=== PATIENT | female | born 1990 | race Caucasian/White ===

== ENCOUNTER 2017-02-24 12:11 | Emergency (ER) | payer OTHER, SELFPAY ==
[~2017-02-24] VITALS: Ht 170.2 cm; Wt 103.6 kg
[2017-02-24 12:11] VITALS: BP 135/81
[~2017-02-24 12:11] MED LIST: ACET50TA PO; IBUP80TA PO; LANOOIN21 EX; PRENTAB9 PO
[2017-02-24] MEDS ORDERED: PENI500T GT (12:59)
== END 2017-02-24 13:33 | disposition home or self-care (01) ==
LOC: M ED 13:26
DX: J02.0 Streptococcal pharyngitis (principal)

== ENCOUNTER 2017-06-09 12:58 | Emergency (ER) | payer MEDICAID, OTHER, SELFPAY ==
[~2017-06-09] VITALS: Ht 170.2 cm; Wt 104.1 kg
[~2017-06-09 12:58] MED LIST changes: +PENI500T GT
[2017-06-09 12:59] VITALS: BP 117/66
[2017-06-09] MEDS ORDERED: BACT800T5 PO (15:41)
[2017-06-09] MEDS ORDERED: BACTRIM 160MG/800MG DS TAB PO ONE (15:45)
== END 2017-06-09 15:47 | disposition home or self-care (01) ==
LOC: M ED 12:58
DX: N30.00 Acute cystitis without hematuria (principal)

== ENCOUNTER 2017-09-23 11:01 | Emergency (ER) | payer OTHER, MEDICAID ==
[2017-09-23 13:15] LABS: BASO # 0.1 10^3/uL (0.0-0.2); BASO % 0.6 % (0.0-1.0); EOS # 0.1 10^3/uL (0.0-0.50); EOS % 0.9 % (0.0-3.0); HEMOGLOBIN 13.7 g/dl (12.0-16.0); IMMATURE GRANULOCYTE # 0.1 10^3/uL (0-0); IMMATURE GRANULOCYTE % 0.5 % (0-0); LYMPH # 1.7 10^3/uL (1.5-6.5); LYMPH % 17.9 % (24.0-44.0); MEAN CORPUSCULAR HEMOGLOBIN 25.4 pg (27.0-33.0); MEAN CORPUSCULAR HGB CONC 32.6 g/dl (32.0-36.5); MEAN CORPUSCULAR VOLUME 77.9 fl (80.0-96.0); MONO # 0.6 10^3/uL (0.0-0.8); MONO % 6.4 % (0.0-5.0); NEUTROPHILS # 7.1 10^3/uL (1.8-7.7); NEUTROPHILS % 73.7 % (36.0-66.0); PLATELET COUNT, AUTOMATED 337 10^3/uL (150-450); RED BLOOD COUNT 5.39 10^6/uL (4.00-5.40); RED CELL DISTRIBUTION WIDTH 14.7 % (11.5-14.5); WHITE BLOOD COUNT 9.7 10^3/uL (4.0-10.0)
[2017-09-23 13:21] LABS: KETONE, URINE AUTO RFX NEGATIVE (NEGATIVE); NITRITE, URINE AUTO RFX NEGATIVE (NEGATIVE); RBC, URINE AUTO RFX 1 /HPF (0-3); SPECIFIC GRAVITY UR AUTO RFX 1.016 (1.002-1.035); SQUAM EPITHELIAL CELL UR AURFX 4 /HPF (0-6); WBC, URINE AUTO RFX 2 /HPF (0-3)
[2017-09-23 13:37] LABS: LEUKOCYTE ESTERASE UR AUTO RFX 3+ (NEGATIVE)
[2017-09-23 13:38] LABS: ANION GAP 7 MEQ/L (8-16); BLOOD UREA NITROGEN 11 MG/DL (7-18); CALCIUM LEVEL 8.9 MG/DL (8.5-10.1); CARBON DIOXIDE LEVEL 28 MEQ/L (21-32); CHLORIDE LEVEL 102 MEQ/L (98-107); CREATININE FOR GFR 0.72 MG/DL (0.55-1.30); GLOMERULAR FILTRATION RATE > 60.0 (>60); GLUCOSE, FASTING 83 MG/DL (70-100); POTASSIUM SERUM 3.9 MEQ/L (3.5-5.1); SODIUM LEVEL 137 MEQ/L (136-145)
[2017-09-23 13:53] LABS: HCG, SERUM QUANTITATIVE 37556 MIU/ML
== END 2017-09-23 14:16 | disposition home or self-care (01) ==
LOC: M ED 11:01
DX: O36.8991 Maternal care for other specified fetal problems, unspecified trimester, fetus 1 (principal); O20.9 Hemorrhage in early pregnancy, unspecified; Z3A.01 Less than 8 weeks gestation of pregnancy
CPT/HCPCS: 76801

== ENCOUNTER 2017-09-30 00:36 | Emergency (ER) | payer OTHER ==
[2017-09-30 02:49] LABS: APPEARANCE, URINE CLOUDY (CLEAR); BACTERIA, URINE AUTO NEGATIVE (NEGATIVE); BILIRUBIN, URINE AUTO NEGATIVE (NEGATIVE); BLOOD, URINE BLOOD NEGATIVE (NEGATIVE); COLOR, URINE YELLOW (YELLOW); GLUCOSE, URINE (UA) AUTO 1+ mg/dL (NEGATIVE); KETONE, URINE AUTO NEGATIVE (NEGATIVE); LEUKOCYTE ESTERASE, URINE AUTO 3+ (NEGATIVE); MUCUS, URINE SMALL (NEGATIVE); NITRITE, URINE AUTO NEGATIVE (NEGATIVE); PROTEIN, URINE AUTO NEGATIVE (NEGATIVE); RBC, URINE AUTO 30 /HPF (0-3); SPECIFIC GRAVITY URINE AUTO 1.019 (1.002-1.035); SQUAMOUS EPITHELIAL CELL UR AU 10 /HPF (0-6); UROBILINOGEN, URINE AUTO 0.2 mg/dL (0.0-2.0); WBC, URINE AUTO 19 /HPF (0-3)
[2017-09-30 03:21] LABS: HCG, SERUM QUANTITATIVE 61298 MIU/ML
[2017-09-30] MEDS: NITROFURANTOIN (MACROBID) 100 MG CAP PO (04:30)
== END 2017-09-30 05:10 | disposition home or self-care (01) ==
LOC: M ED 00:36
DX: O20.8 Other hemorrhage in early pregnancy (principal); O23.40 Unspecified infection of urinary tract in pregnancy, unspecified trimester; Z3A.01 Less than 8 weeks gestation of pregnancy; Z79.899 Other long term (current) drug therapy
CPT/HCPCS: 76801

== ENCOUNTER → 2017-10-16 | Outpatient (CLI) | payer OTHER ==
[2017-10-16 13:40] LABS: BASO % 0.4 % (0.0-1.0); EOS # 0.1 10^3/uL (0.0-0.50); EOS % 1.1 % (0.0-3.0); HEMATOCRIT 38.2 % (36.0-47.0); HEMOGLOBIN 12.7 g/dl (12.0-16.0); IMMATURE GRANULOCYTE % 0.5 % (0-3.0); LYMPH # 1.2 10^3/uL (1.5-6.5); LYMPH % 16.5 % (24.0-44.0); MEAN CORPUSCULAR HEMOGLOBIN 26.7 pg (27.0-33.0); MEAN CORPUSCULAR HGB CONC 33.2 g/dl (32.0-36.5); MEAN CORPUSCULAR VOLUME 80.3 fl (80.0-96.0); MONO # 0.6 10^3/uL (0.0-0.8); MONO % 7.6 % (0.0-5.0); NEUTROPHILS # 5.6 10^3/uL (1.8-7.7); NEUTROPHILS % 73.9 % (36.0-66.0); PLATELET COUNT, AUTOMATED 293 10^3/uL (150-450); RED BLOOD COUNT 4.76 10^6/uL (4.00-5.40); RED CELL DISTRIBUTION WIDTH 15.3 % (11.5-14.5); WHITE BLOOD COUNT 7.5 10^3/uL (4.0-10.0)
[2017-10-16 13:52] LABS: RUBELLA IgG QUALITATIVE IMMUNE (IMMUNE)
[2017-10-16 13:53] LABS: HBsAg Prenatal NEGATIVE (NEGATIVE)
[2017-10-16 14:21] LABS: HEPATITIS C VIRUS ABY INDEX 0.1 INDEX (<0.8)
[2017-10-16 14:22] LABS: HIV 1&2 SCREEN CENTAUR NEGATIVE (NEGATIVE)
[2017-10-16 15:04] LABS: CHLAMYDIA DNA AMPLIFICATION POSITIVE (NEGATIVE); GC DNA AMPLIFICATION NEGATIVE (NEGATIVE)
== END ==
LOC: M SMT 08:32
DX: Z34.81 Encounter for supervision of other normal pregnancy, first trimester (principal); Z3A.09 9 weeks gestation of pregnancy
CPT/HCPCS: 86762

== ENCOUNTER 2017-10-27 09:47 | Emergency (ER) | payer OTHER ==
[2017-10-27 10:32] LABS: HEMATOCRIT 37.3 % (36.0-47.0); HEMOGLOBIN 12.7 g/dl (12.0-16.0); MEAN CORPUSCULAR VOLUME 79.2 fl (80.0-96.0); PLATELET COUNT, AUTOMATED 279 10^3/uL (150-450); RED BLOOD COUNT 4.71 10^6/uL (4.00-5.40); RED CELL DISTRIBUTION WIDTH 15.1 % (11.5-14.5); WHITE BLOOD COUNT 10.1 10^3/uL (4.0-10.0)
[2017-10-27 11:09] LABS: HCG, SERUM QUANTITATIVE 65673 MIU/ML
[2017-10-27 11:25] LABS: KETONE, URINE AUTO RFX NEGATIVE (NEGATIVE); MUCUS, URINE RFX SMALL (NEGATIVE); NITRITE, URINE AUTO RFX NEGATIVE (NEGATIVE); RBC, URINE AUTO RFX 6 /HPF (0-3); SPECIFIC GRAVITY UR AUTO RFX 1.027 (1.002-1.035); SQUAM EPITHELIAL CELL UR AURFX 16 /HPF (0-6); WBC, URINE AUTO RFX 7 /HPF (0-3)
[2017-10-27 11:26] LABS: LEUKOCYTE ESTERASE UR AUTO RFX 3+ (NEGATIVE)
[2017-10-27 13:57] LABS: CHLAMYDIA DNA AMPLIFICATION NEGATIVE (NEGATIVE); GC DNA AMPLIFICATION NEGATIVE (NEGATIVE)
== END 2017-10-27 12:04 | disposition home or self-care (01) ==
LOC: M ED 09:47
DX: O26.852 Spotting complicating pregnancy, second trimester (principal); O23.42 Unspecified infection of urinary tract in pregnancy, second trimester; Z3A.09 9 weeks gestation of pregnancy; Z79.899 Other long term (current) drug therapy
CPT/HCPCS: 76801

== ENCOUNTER 2017-11-06 08:45 | Emergency (ER) | payer OTHER ==
[2017-11-06] MEDS: NS 1,000 ML IV (09:26)
[2017-11-06] MEDS: ONDANSETRON 4MG/2ML VIAL (J2405) IV (09:26)
[2017-11-06] MEDS: ACETAMINOPHEN 325 MG TAB PO (09:27)
== END 2017-11-06 11:25 | disposition home or self-care (01) ==
LOC: M ED 08:45
DX: O26.892 Other specified pregnancy related conditions, second trimester (principal); R11.2 Nausea with vomiting, unspecified; R10.2 Pelvic and perineal pain; Z3A.14 14 weeks gestation of pregnancy
CPT/HCPCS: J2405

== ENCOUNTER → 2017-11-15 | Outpatient (REF) | payer OTHER ==
[2017-11-15 14:29] LABS: CHLAMYDIA DNA AMPLIFICATION NEGATIVE (NEGATIVE); GC DNA AMPLIFICATION NEGATIVE (NEGATIVE)
== END ==
LOC: M LAB REF 12:48
DX: O98.311 Other infections with a predominantly sexual mode of transmission complicating pregnancy, first trimester (principal)

== ENCOUNTER 2017-11-23 21:31 | Emergency (ER) | payer OTHER | END 2017-11-24 00:31 | disposition home or self-care (01) | LOC: M ED 21:31 | DX: O9A.212 Injury, poisoning and certain other consequences of external causes complicating pregnancy, second trimester (principal); S30.92XA Unspecified superficial injury of abdominal wall, initial encounter; W22.8XXA Striking against or struck by other objects, initial encounter; Y92.59 Other trade areas as the place of occurrence of the external cause; Y99.0 Civilian activity done for income or pay; Z3A.15 15 weeks gestation of pregnancy | CPT/HCPCS: 76811 ==

== ENCOUNTER → 2017-12-16 | Outpatient (REF) | payer OTHER ==
[2017-12-16 16:52] LABS: APPEARANCE, URINE HAZY (CLEAR); BACTERIA, URINE AUTO NEGATIVE (NEGATIVE); BILIRUBIN, URINE AUTO NEGATIVE (NEGATIVE); BLOOD, URINE BLOOD NEGATIVE (NEGATIVE); COLOR, URINE YELLOW (YELLOW); GLUCOSE, URINE (UA) AUTO NEGATIVE (NEGATIVE); KETONE, URINE AUTO TRACE mg/dL (NEGATIVE); LEUKOCYTE ESTERASE, URINE AUTO 3+ (NEGATIVE); MUCUS, URINE SMALL (NEGATIVE); NITRITE, URINE AUTO NEGATIVE (NEGATIVE); PROTEIN, URINE AUTO NEGATIVE (NEGATIVE); RBC, URINE AUTO 2 /HPF (0-3); SPECIFIC GRAVITY URINE AUTO 1.025 (1.002-1.035); SQUAMOUS EPITHELIAL CELL UR AU 8 /HPF (0-6); UROBILINOGEN, URINE AUTO 0.2 mg/dL (0.0-2.0); WBC, URINE AUTO 4 /HPF (0-3)
== END ==
LOC: M LAB REF 16:25
DX: N39.0 Urinary tract infection, site not specified (principal)

== ENCOUNTER → 2017-12-19 | Outpatient (CLI) | payer OTHER | LOC: M RAD 14:27 | DX: Z34.82 Encounter for supervision of other normal pregnancy, second trimester (principal) | CPT/HCPCS: 76816 ==

== ENCOUNTER → 2018-01-06 | Outpatient (REF) | payer OTHER ==
[2018-01-06 13:03] LABS: APPEARANCE, URINE CLOUDY (CLEAR); BACTERIA, URINE AUTO NEGATIVE (NEGATIVE); BILIRUBIN, URINE AUTO NEGATIVE (NEGATIVE); BLOOD, URINE BLOOD 1+ (NEGATIVE); CALCIUM OXALATE CRYSTALS SMALL; COLOR, URINE AMBER (YELLOW); GLUCOSE, URINE (UA) AUTO NEGATIVE (NEGATIVE); KETONE, URINE AUTO NEGATIVE (NEGATIVE); LEUKOCYTE ESTERASE, URINE AUTO 3+ (NEGATIVE); MUCUS, URINE SMALL (NEGATIVE); NITRITE, URINE AUTO NEGATIVE (NEGATIVE); PROTEIN, URINE AUTO NEGATIVE (NEGATIVE); RBC, URINE AUTO 2 /HPF (0-3); SPECIFIC GRAVITY URINE AUTO 1.028 (1.002-1.035); SQUAMOUS EPITHELIAL CELL UR AU 15 /HPF (0-6); UROBILINOGEN, URINE AUTO 0.2 mg/dL (0.0-2.0); WBC, URINE AUTO 6 /HPF (0-3)
== END ==
LOC: M LAB REF 12:14
DX: N39.0 Urinary tract infection, site not specified (principal)

== ENCOUNTER → 2018-01-14 | Outpatient (CLI) | payer OTHER | LOC: M RAD 15:51 | DX: Z34.82 Encounter for supervision of other normal pregnancy, second trimester (principal); Z3A.22 22 weeks gestation of pregnancy | CPT/HCPCS: 76816 ==

== ENCOUNTER 2018-02-17 20:11 | Outpatient (CLI) | payer OTHER | END 2018-02-17 21:30 | disposition home or self-care (01) | LOC: M LDO 20:11 | DX: O36.8120 Decreased fetal movements, second trimester, not applicable or unspecified (principal); Z3A.27 27 weeks gestation of pregnancy; O26.852 Spotting complicating pregnancy, second trimester | CPT/HCPCS: 59025 ==

== ENCOUNTER → 2018-02-19 | Outpatient (CLI) | payer OTHER ==
[2018-02-19 13:42] LABS: HEMATOCRIT 36.2 % (36.0-47.0); HEMOGLOBIN 11.5 g/dl (12.0-15.5); MEAN CORPUSCULAR HGB CONC 31.8 g/dl (32.0-36.5); MEAN CORPUSCULAR VOLUME 81.7 fl (80.0-96.0); PLATELET COUNT, AUTOMATED 276 10^3/uL (150-450); RED BLOOD COUNT 4.43 10^6/uL (4.00-5.40); RED CELL DISTRIBUTION WIDTH 14.1 % (11.5-14.5); WHITE BLOOD COUNT 9.8 10^3/uL (4.0-10.0)
[2018-02-19 13:56] LABS: GLUCOSE CHALLENGE TEST 1 HOUR 137 MG/DL (LESS THAN 140)
== END ==
LOC: M SMT 08:33
DX: Z34.82 Encounter for supervision of other normal pregnancy, second trimester (principal)
CPT/HCPCS: 82950

== ENCOUNTER → 2018-02-25 | Outpatient (CLI) | payer OTHER ==
[2018-02-25 08:30] LABS: GLUCOSE, FASTING 85 MG/DL (LESS THAN 95)
[2018-02-25 09:27] LABS: 1 HR GLUCOSE 147 MG/DL (LESS THAN 180)
[2018-02-25 11:03] LABS: 2 HR GLUCOSE 123 MG/DL (LESS THAN 155)
[2018-02-25 11:28] LABS: 3 HR GLUCOSE 61 MG/DL (LESS THAN 140)
== END ==
LOC: M LAB 07:23
DX: Z34.82 Encounter for supervision of other normal pregnancy, second trimester (principal); Z3A.00 Weeks of gestation of pregnancy not specified
CPT/HCPCS: 82951

== ENCOUNTER 2018-03-19 08:19 | Outpatient (CLI) | payer OTHER ==
[2018-03-19 15:25] LABS: CHLAMYDIA DNA AMPLIFICATION NEGATIVE (NEGATIVE); GC DNA AMPLIFICATION NEGATIVE (NEGATIVE)
== END 2018-03-19 11:03 | disposition home or self-care (01) ==
LOC: M LDO 08:19
DX: O26.893 Other specified pregnancy related conditions, third trimester (principal); Z3A.31 31 weeks gestation of pregnancy; O23.593 Infection of other part of genital tract in pregnancy, third trimester
CPT/HCPCS: 59025

== ENCOUNTER 2018-05-14 12:21 | Inpatient (IN) | payer OTHER ==
[2018-05-14] MEDS: LACTATED RINGER'S 1000 ML IV (13:04)
[2018-05-14] MEDS: LR 1,000 ML IV ×3 (13:18→17:50)
[2018-05-14] MEDS: OXYTOCIN DRIP 30 UNITS in APPROPRIATE DILUENT 1 EA IV (13:18)
[2018-05-14 13:24] LABS: HEMATOCRIT 36.3 % (36.0-47.0); HEMOGLOBIN 11.9 g/dl (12.0-15.5); MEAN CORPUSCULAR HGB CONC 32.8 g/dl (32.0-36.5); MEAN CORPUSCULAR VOLUME 79.3 fl (80.0-96.0); PLATELET COUNT, AUTOMATED 216 10^3/uL (150-450); RED BLOOD COUNT 4.58 10^6/uL (4.00-5.40); RED CELL DISTRIBUTION WIDTH 17.3 % (11.5-14.5); WHITE BLOOD COUNT 8.1 10^3/uL (4.0-10.0)
[2018-05-14 13:54] LABS: AMPHETAMINES URINE REFLEX NEGATIVE (NEGATIVE); BARBITURATES URINE REFLEX NEGATIVE (NEGATIVE); BENZODIAZEPINES URINE REFLEX NEGATIVE (NEGATIVE); CANNABINOIDS URINE REFLEX NEGATIVE (NEGATIVE); COCAINE METABOLITE URINE REFLE NEGATIVE (NEGATIVE); METHADONE URINE REFLEX NEGATIVE (NEGATIVE); OPIATES URINE REFLEX NEGATIVE (NEGATIVE); PHENCYCLIDINE URINE REFLEX NEGATIVE (NEGATIVE)
[2018-05-14 15:08] LABS: ALT/SGPT 20 U/L (12-78); AST/SGOT 20 U/L (7-37); BILIRUBIN,TOTAL 0.2 MG/DL (0.2-1.0); CREATININE FOR GFR 0.68 MG/DL (0.55-1.30); GLOMERULAR FILTRATION RATE > 60.0 (>60); LDH LACTATE DEHYDROGENASE 182 U/L (84-246); URIC ACID 5.7 MG/DL (2.6-6.0)
[2018-05-14 15:20] LABS: TOTAL PROTEIN,RANDOM URINE 66.6 MG/DL (0.0-12.0)
[2018-05-14 16:43] LABS: CHLAMYDIA DNA AMPLIFICATION NEGATIVE (NEGATIVE); GC DNA AMPLIFICATION NEGATIVE (NEGATIVE)
[2018-05-14] MEDS ORDERED: FENTANYL 2MCG/ML ROPIVACAINE 0.2% IN 0.9% NACL 200ML IVBAG As Ordered (17:25)
[2018-05-14] MEDS ORDERED: ePHEDrine SULFATE 25 MG/5 ML(5MG/ML) SYRINGE IV (18:00)
[2018-05-14] MEDS ORDERED: ONDANSETRON 4MG/2ML VIAL (J2405) IV (18:00)
[2018-05-14] MEDS ORDERED: EPIDURAL/PCA KEYS XX (18:00)
[2018-05-14] MEDS ORDERED: diphenhydrAMINE INJ 50MG/ML VIAL (J1200) IV (18:00)
[2018-05-14] MEDS ORDERED: EPIDURAL COMMENT XX (18:00)
[2018-05-14] MEDS ORDERED: FENTANYL/ROPIVACAINE/NACL BAG 200 ML EPIDURAL (18:00)
[2018-05-14] MEDS ORDERED: REFRIGERATOR IV KEYS XX (18:00)
[2018-05-14] MEDS ORDERED: LACTATED RINGER'S 1000 ML IV (18:00)
[2018-05-14] MEDS ORDERED: NALOXONE INJ 0.4 MG/1 ML VIAL (J2310) IV (18:00)
[2018-05-14] MEDS ORDERED: DOCUSATE SODIUM 100 MG CAP PO (23:15)
[2018-05-14] MEDS ORDERED: MEASLES,MUMPS,RUBELLA VACCINE INJ (MMR-II) (90707) SC (23:15)
[2018-05-14] MEDS ORDERED: ANUSOL HC CREAM 30GM TOP (23:15)
[2018-05-14] MEDS ORDERED: DIBUCAINE 1% OINTMENT 30GM TOP (23:15)
[2018-05-14] MEDS ORDERED: RHOGAM 300 MCG (1500 IU) INJ (J2790) IM (23:15)
[2018-05-15] MEDS: OXYTOCIN DRIP 30 UNITS in APPROPRIATE DILUENT 1 EA IV ×5 (00:38→22:59)
[2018-05-15] MEDS: ACETAMINOPHEN 500 MG TAB PO (00:38)
[2018-05-15] MEDS: OXYTOCIN INJ 10 UNITS/ML VIAL (J2590) IM (01:20)
[2018-05-15] MEDS: PRENATAL VITAMINS CHEWABLE TABLET PO (08:19)
[2018-05-15] MEDS: IBUPROFEN 800 MG TAB PO ×2 (08:24→19:57)
[2018-05-16] MEDS: OXYTOCIN DRIP 30 UNITS in APPROPRIATE DILUENT 1 EA IV ×3 (02:16→11:16)
[2018-05-16] MEDS: PRENATAL VITAMINS CHEWABLE TABLET PO (08:19)
[2018-05-16] MEDS: INFLUENZA QUADRIVALENT PF VACCINE 0.5ML SYRINGE (90686) IM (08:20)
== END 2018-05-16 12:15 | disposition home or self-care (01) | DRG 560 ==
LOC: M LDI 12:21 → M OBS 05-15 00:59
PROVIDERS: Advanced Practice Midwife
PROC: 10E0XZZ Delivery of Products of Conception, External Approach (ICD-10-PCS; principal; 2018-05-14)
PROC: 3E033VJ Introduction of Other Hormone into Peripheral Vein, Percutaneous Approach (ICD-10-PCS; 2018-05-14)
DX: O46.93 Antepartum hemorrhage, unspecified, third trimester (principal); O66.0 Obstructed labor due to shoulder dystocia; Z37.0 Single live birth; Z3A.39 39 weeks gestation of pregnancy

== ENCOUNTER 2018-07-02 08:34 | Day surgery (SDC) | payer OTHER ==
[2018-07-02] MEDS: LR 1,000 ML IV (09:00)
[2018-07-02 09:34] LABS: CONTROL LINE UCG INT CTR LINE PRESENT; URINE PREG TEST NEGATIVE (NEGATIVE)
[2018-07-02] MEDS ORDERED: fentaNYL 100 MCG/2 ML INJECTION (J3010) As Ordered ×2 (10:05→10:10)
[2018-07-02] MEDS ORDERED: ONDANSETRON 4MG/2ML VIAL (J2405) As Ordered (10:05)
[2018-07-02] MEDS ORDERED: PROPOFOL 200 MG/20 ML VIAL As Ordered (10:05)
[2018-07-02] MEDS ORDERED: MIDAZOLAM INJ 2 MG/2 ML VIAL (J2250) As Ordered (10:05)
[2018-07-02] MEDS ORDERED: ROCURONIUM BROMIDE 50 MG/5 ML VIAL As Ordered ×2 (10:05→10:23)
[2018-07-02] MEDS ORDERED: dexameTHASONE 4 MG/ML 1ML VIAL (J1100) As Ordered (10:05)
[2018-07-02] MEDS ORDERED: LIDOCAINE 2% INJ 100 MG/5 ML SDV (FOR ANES.) As Ordered (10:05)
[2018-07-02] MEDS ORDERED: SUGAMMADEX SODIUM 500 MG/5 ML VIAL (BRIDION) As Ordered (10:16)
[2018-07-02] MEDS ORDERED: KETOROLAC 60 MG/2 ML VIAL (J1885) As Ordered (10:17)
[2018-07-02] MEDS: BUPIVACAINE HCL 0.25% 30 ML VIAL As Ordered (10:35)
[2018-07-02] MEDS ORDERED: GLYCOPYRROLATE INJ 0.2 MG/ML 2 ML VIAL As Ordered (11:05)
[2018-07-02] MEDS ORDERED: LR 1,000 ML IV ×2 (11:15→11:30)
[2018-07-02] MEDS ORDERED: PERCOCET 5MG/325MG TAB PO ×2 (11:30)
[2018-07-02] MEDS ORDERED: fentaNYL 100 MCG/2 ML INJECTION (J3010) IV (11:30)
[2018-07-02] MEDS ORDERED: ONDANSETRON 4MG/2ML VIAL (J2405) IV (11:30)
== END 2018-07-02 12:55 | disposition home or self-care (01) ==
LOC: M SDC 08:34
DX: Z30.2 Encounter for sterilization (principal); D64.9 Anemia, unspecified; F32.9 Major depressive disorder, single episode, unspecified; Z79.899 Other long term (current) drug therapy; E66.01 Morbid (severe) obesity due to excess calories
CPT/HCPCS: 58671

== ENCOUNTER 2020-06-12 09:04 | Emergency (ER) | payer OTHER ==
[~2020-06-12] VITALS: Ht 170.2 cm; Wt 110.2 kg
[~2020-06-12 09:04] MED LIST changes: -ACET50TA PO; +BACT800T5 PO; +KEFL250C11 PO; +MACR100C43 PO; +MAPA500T17 PO; +OXYC1TAB23 PO; +PRENTAB7 PO; +prenatal PO
--- NOTE | 2020-06-12 10:14 | REPVR ---
PROCEDURE INFORMATION: Exam: CT Head Without Contrast Exam date and time: 06/12/2020 10:00 AM Age: 29 years old Clinical indication: Numbness / parasthesia; Bilateral; Additional info: Bilat arm numbness TECHNIQUE: Imaging protocol: Computed tomography of the head without contrast. Radiation optimization: All CT scans at this facility use at least one of these dose optimization techniques: automated exposure control; mA and/or kV adjustment per patient size (includes targeted exams where dose is matched to clinical indication); or iterative reconstruction. COMPARISON: No relevant prior studies available. FINDINGS: Brain: Examination of the brain demonstrates normal structure and attenuation.The cortical newman / white matter interfaces are preserved throughout the brain.No acute infarction, masses or hemorrhage is seen. Cerebral ventricles: The ventricular system is not dilated and is appropriate for the patient's age. Bones/joints: Unremarkable. No acute fracture. Paranasal sinuses: Visualized sinuses are unremarkable. No fluid levels. Mastoid air cells: Visualized mastoid air cells are well aerated. Soft tissues: Unremarkable. IMPRESSION: No acute infarction, masses or hemorrhage is seen. No acute intracranial abnormality is identified. Electronically signed by: Virgilio Miller On 06/12/2020 10:13:46 AM
--- NOTE | 2020-06-12 10:18 | REPVR ---
PROCEDURE INFORMATION: Exam: CT Cervical Spine Without Contrast Exam date and time: 06/12/2020 10:00 AM Age: 29 years old Clinical indication: Weakness; Additional info: Bilat arm numbness, cervical tenderness TECHNIQUE: Imaging protocol: Computed tomography images of the cervical spine without contrast. Radiation optimization: All CT scans at this facility use at least one of these dose optimization techniques: automated exposure control; mA and/or kV adjustment per patient size (includes targeted exams where dose is matched to clinical indication); or iterative reconstruction. COMPARISON: No relevant prior studies available. FINDINGS: Vertebrae: The cervical vertebral bodies are normal height and alignment.No acute fracture or dislocation is seen. Discs/Spinal canal/Neural foramina: The atlantoaxial articulation is normal. There is no significant degenerative disc herniation . There is no evidence of spinal canal narrowing.There is no evidence of foraminal stenosis. Epidural space: There is no evidence of epidural masses or hemorrhage. Prevertebral Space: The prevertebral soft tissues appear normal. Soft tissues: There is straightening of the cervical spine which could be secondary to positioning or muscle spasm. There are no soft tissue masses or fluid collections. Lungs: Lung apices are normal. IMPRESSION: No acute fracture or dislocation is seen. Electronically signed by: Virgilio Miller On 06/12/2020 10:18:27 AM
[2020-06-12 10:34] VITALS: BP 133/78
== END 2020-06-12 10:36 | disposition home or self-care (01) ==
LOC: M ED 09:04
DX: R20.2 Paresthesia of skin (principal); Z91.040 Latex allergy status

== ENCOUNTER 2021-06-30 23:32 | Emergency (ER) | payer OTHER ==
[~2021-06-30] VITALS: Ht 170.2 cm; Wt 95.0 kg
--- OUTSIDE RECORDS SUMMARY | 2021-06-30 23:39 | CCD ---
Author Author [facility] Organization [facility] Address Unknown Phone Unavailable Care Team Providers Care Dobby Looms Pegger Name Role Phone Maring, Jr PA Unavailable Unavailable Maring, Jr PA Unavailable Unavailable Maring, Jr PA Unavailable Unavailable Maring, Jr PA Unavailable Unavailable Maring, Jr PA Unavailable Unavailable Maring, Jr PA Unavailable Unavailable Maring, Jr PA Unavailable Unavailable Maring, Jr PA Unavailable Unavailable Maring, Jr PA Unavailable Unavailable Maring, Jr PA Unavailable Unavailable Maring, Jr PA Unavailable Unavailable Maring, Jr PA Unavailable Unavailable Maring, Jr PA Unavailable Unavailable Maring, Jr PA Unavailable Unavailable Maring, Jr PA Unavailable Unavailable Maring, Jr PA Unavailable Unavailable GALLO, G EDWARD RPA Unavailable Unavailable GALLO, G EDWARD RPA Unavailable Unavailable GALLO, G EDWARD RPA Unavailable Unavailable GALLO, G EDWARD RPA Unavailable Unavailable GALLO, G EDWARD RPA Unavailable Unavailable GALLO, G EDWARD RPA Unavailable Unavailable GALLO, G EDWARD RPA Unavailable Unavailable GALLO, G EDWARD RPA Unavailable Unavailable GALLO, G EDWARD RPA Unavailable Unavailable GALLO, G EDWARD RPA Unavailable Unavailable GALLO, G EDWARD RPA Unavailable Unavailable GALLO, G EDWARD RPA Unavailable Unavailable GALLO, G EDWARD RPA Unavailable Unavailable GALLO, G EDWARD RPA Unavailable Unavailable GALLO, G EDWARD RPA Unavailable Unavailable GALLO, G EDWARD RPA Unavailable Unavailable GALLO, G EDWARD RPA Unavailable Unavailable GALLO, G EDWARD RPA Unavailable Unavailable GALLO, G EDWARD RPA Unavailable Unavailable GALLO, G EDWARD RPA Unavailable Unavailable GALLO, G EDWARD RPA Unavailable Unavailable GALLO, G EDWARD RPA Unavailable Unavailable GALLO, G EDWARD RPA Unavailable Unavailable GALLO, G EDWARD RPA Unavailable Unavailable GALLO, G EDWARD RPA Unavailable Unavailable GALLO, G EDWARD RPA Unavailable Unavailable GALLO, G EDWARD RPA Unavailable Unavailable GALLO, G EDWARD RPA Unavailable Unavailable GALLO, G EDWARD RPA Unavailable Unavailable GALLO, G EDWARD RPA Unavailable Unavailable GALLO, G EDWARD RPA Unavailable Unavailable GALLO, G EDWARD RPA Unavailable Unavailable GALLO, G EDWARD RPA Unavailable Unavailable GALLO, G EDWARD RPA Unavailable Unavailable GALLO, G EDWARD RPA Unavailable Unavailable GALLO, G EDWARD RPA Unavailable Unavailable GALLO, G EDWARD RPA Unavailable Unavailable Re-disclosure Warning The records that you are about to access may contain information from federally-assisted alcohol or drug abuse programs. If such information is present, then the following federally mandated warning applies: This information has been disclosed to you from records protected by federal confidentiality rules (42 CFR part 2). The federal rules prohibit you from making any further disclosure of this information unless further disclosure is expressly permitted by the written consent of the person to whom it pertains or as otherwise permitted by 42 CFR part 2. A general authorization for the release of medical or other information is NOT sufficient for this purpose. The Federal rules restrict any use of the information to criminally investigate or prosecute any alcohol or drug abuse patient.The records that you are about to access may contain highly sensitive health information, the redisclosure of which is protected by Article 27-F of the [facility] Public Health law. If you continue you may have access to information: Regarding HIV / AIDS; Provided by facilities licensed or operated by the [facility] Office of Mental Health; or Provided by the [facility] Office for People With Developmental Disabilities. If such information is present, then the following [facility] mandated warning applies: This information has been disclosed to you from confidential records which are protected by state law. State law prohibits you from making any further disclosure of this information without the specific written consent of the person to whom it pertains, or as otherwise permitted by law. Any unauthorized further disclosure in violation of state law may result in a fine or group home sentence or both. A general authorization for the release of medical or other information is NOT sufficient authorization for further disc losure. Family History Family Member Name Family Member Gender Family Member Status Date o f Status Description Data Source(s) Unknown Unknown Problem [facility] ([facility]) Encounters Encounter Providers Location Date Indications Data Source(s ) Outpatient Attender: CHRISTINE GALLO RPA 04/30 11:57:15 AM EDT - 04/30/2021 01:10:27 PM EDT [facility] ([facility] ) Outpatient 04/30/2021 11:50:59 AM EDT [facility] ([facility]) Outpatient Attender: Jr ALVARADO 04/25/20 07:39:12 AM EDT - 04/25/2021 08:12:05 AM EDT [facility] ([facility] ) Outpatient Attender: CHRISTINE GALLO RPA 12/29 12:45:08 PM EDT - 12/29/2020 02:49:13 PM EDT [facility] ([facility] ) Immunizations Vaccine Date Status Description Data Source(s) COVID-19 VACCINE Moderna 01/01/2021 12:00:00 AM EDT completed [facility] Vaccine Series Complete: YESThis Data wa s Submitted to [facility] Via [facility]. COVID-19 VACC,MRNA(MODERNA)/PF 12/01/2020 12:00:00 AM EDT completed [facility] COVID-19 VACCINE Moderna 12/01/2020 12:00:00 AM EDT completed [facility] Vaccine Series Complete: NOThis Data was Submitted to [facility] [employer]. INFLUENZA VIRUS VACCINE QUADRIVAL [id number](6 MOS AND UP)/PF 05/07/2020 12:00:00 AM EDT completed [facility] Medications Medication Brand Name Start Date Product Form Dose Route Admi nistrative Instructions Pharmacy Instructions Status Indications Reaction Description Data Source(s) 500 mg 04/30/2021 12:00:00 AM EDT tablet 3 TAKE ONE TABLET BY MOUTH ONCE DAILY FOR 3 DAYS TAKE ONE TABLET BY MOUTH ONCE DAILY FOR 3 DAYS SOLD: 0 04/30/2021 [facility] 20 mg 04/30/2021 12:00:00 AM EDT tablet 15 TAKE 3 TABLETS BY MOUTH DAILY FOR 3 DAYS THEN 2 TABLETS BY MOUTH DAILY FOR 2 DAYS THEN 1 TABLET BY MOUTH DAILY FOR 2 DAYS TAKE 3 TABLETS BY MOUTH DAILY FOR 3 DAYS THEN 2 TABLETS BY MOUTH DAILY FOR 2 DAYS THEN 1 TABLET BY MOUTH DAILY FOR 2 DAYS SOLD: 04/30/2021 [facility] Hydrocortisone 10 MG/ML / Neomycin 3.5 M G/ML / Polymyxin B 80944 UNT/ML Otic Solution 3.5-10,000-1 mg/mL-unit/mL-% NEOMYCIN/POLYMYXIN B/HYDROCORT 04/25/2021 12:00:00 AM EDT solution 10 INSTILL FOUR EZRA PS OTIC (EAR) FOUR TIMES A DAY IN LEFT EAR INSTILL FOUR DROPS OTIC (EAR) FOUR TIMES A DAY IN LEFT EAR SOLD: 04/25/2021 [facility] . UNIT 05/24/2020 12:00:00 AM EDT Injectable 1 DIRECTED DIRECTED SOLD: 05/25/2020 [facility] Insurance Providers Payer name Policy type / Coverage type Policy ID Covered green party ID Covered green party's relationship to salcedo Policy Salcedo Plan Information [facility] Maintenance [facility] ([facility]) [id number] Self [id number] [facility] ([facility]) [id number] Self [id number] [facility] [id number] SP [id number] [facility] [id number] SP [id number] Workers Comp I- FA WorkComp Health Claim [id number] Employee [id number] Workers Comp Carrier I WorkComp Health Claim [id number] Emp [place] [id number] Workers Comp I- FA WorkComp Health Claim [id number] Employee [id number] Workers Comp Carrier I WorkComp Health Claim [id number] Emp l[place]ee [id number] [employer] [id number] Self [id number] [employer]. 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 PLAN [id number] SP [id number] SELF PAY UNAVAILABLE SP UNAVAILA BLE [facility] SA[facility] [id number] FA2 [id number] NINA [id number] SP [id number] 100 [id number] [place] O [id number] S [id number] [facility] O [id number] S [id number] UNHC COMMUNITY PLAN MCDHMO [id number] SP [id number] UNHC COMMUNITY PLAN XIX [id number] 18 [id number] MEDICAID [id number] SP [id number] SELF PAY ONLY [id number] SP [id number] SELF PAY ONLY [id number] SP [id number] [facility] Maintenance Organization (HMO) [id number] Self [employer] S [id number] S [id number] Problems, Conditions, and Diagnoses No Information Surgeries/Procedures No Information Results ID Date Data Source [id number] 08/31/2020 02:21:00 PM EST [facility] Name Value Range Interpretation Code Description Data Yaa rce(s) Supporting Document(s) SARS-CoV-2 by JOSE Not Detected [facility] This lab was ordered by [facility] and reported by [employer]. ID Date Data Source [id number] 09/03/2020 07:08:35 PM EST [facility] Name Value Range Interpretation Code Description Data Yaa rce(s) Supporting Document(s) SARS COV2 SOURCE [facility] SARS COV 2 BY PCR [facility] Not Detected INTERPRETIVE INFORMATION: S ARS-CoV-2 (COVID-19) by JOSE This test should be ordered for the detection of the 2019 novel coronavirus SARS-CoV-2 in individuals who meet SARS-CoV-2 clinical and/or epidemiological criteria. The Coronavirus SARS-CoV-2 (COVID-19) by nucleic acid amplification test is for in vitro diagnostic use under the FDA Emergency Use Authorization (EUA) for US laboratories certified under CLIA to perform high complexity tests. This test has not been FDA cleared or approved. In compliance with this authorization, please visit [email or web address] for more information and to access the applicable information sheets. Not Detected results do not rule out the presence of PCR inhibitors in the patient specimen or assay specific nucleic acid in concentrations below the level of detection by the assay. Detected results are indicative of the presence of SARS-CoV-2 RNA. Due to the complexity of nucleic acid amplification methodologies, there may be a risk of false positive results. Clinical correlation with patient history and other diagnostic information is necessary to determine patient infection status. Reliable results are dependent on adequate specimen collection, transport, storage, and handling. Performed by [employer], [address] [place] [id number] [email or web address], Marcia Langley MD, Lab. Director ID Date Data Source [id number] 08/20/2020 12:00:00 AM EST [facility] Name Value Range Interpretation Code Description Data Yaa rce(s) Supporting Document(s) SARS coronavirus 2 RNA [facility] This lab was ordered by [facility] and rep orted by [facility]. Procedure Social History No Information
[2021-07-01 03:42] VITALS: BP 124/84
--- OUTSIDE RECORDS SUMMARY | 2021-07-01 05:20 | CCD ---
Author Author [facility] Organization [facility] Address Unknown Phone Unavailable Care Team Providers Care Home Child Care Provider Name Role Phone Maring, Jr PA Unavailable [...] is protected by Article 27-F of the [facility] Public Health law. If you continue you may have access to information: Regarding HIV / AIDS; Provided by facilities licensed or operated by the [facility] Office of Mental Health; or Provided by the [facility] Office for People With Developmental Disabilities. If such information is present, then the following [facility] mandated warning applies: This information has been [...] law may result in a fine or alf sentence or both. A general authorization for [...] EDT - 04/30/2021 01:10:27 PM EDT [facility] ([facility] ) Outpatient 04/30/2021 11:50:59 AM EDT [facility] ([facility]) Outpatient Attender: Jr ALVARADO 04/25/20 07:39:12 AM EDT - 04/25/2021 08:12:05 AM EDT [facility] ([facility] ) Outpatient Attender: CHRISTINE GALLO RPA 12/29 12:45:08 PM EDT - 12/29/2020 02:49:13 PM EDT [facility] ([facility] ) Immunizations Vaccine Date Status Description Data Source(s) COVID-19 VACCINE Moderna 01/01/2021 12:00:00 AM EDT completed [facility] Vaccine Series Complete: YESThis Data wa s Submitted to [facility] Via [email or web address]. COVID-19 VACC,MRNA(MODERNA)/PF 12/01/2020 12:00:00 AM EDT completed [facility] COVID-19 VACCINE Moderna 12/01/2020 12:00:00 AM EDT completed [facility] Vaccine Series Complete: NOThis Data was Submitted to [facility] Via [email or web address]. INFLUENZA VIRUS VACCINE QUADRIVAL [id number](6 MOS AND UP)/PF 05/07/2020 12:00:00 AM EDT completed [employer] Medications Medication Brand Name Start Date Product [...] Neomycin 3.5 M G/ML / Polymyxin B 60647 UNT/ML Otic Solution 3.5-10,000-1 mg/mL-unit/mL-% NEOMYCIN/POLYMYXIN B/HYDROCORT [...] type / Coverage type Policy ID Covered republican ID Covered republican's relationship to salcedo Policy Salcedo Plan Information [facility] Maintenance [facility] ([facility]) [id number] Self [id number] [facility] ([facility]) [id number] Self [id number] [facility] [id number] SP [id number] [facility] [id number] SP [id number] Workers Comp I- FA WorkComp Health Claim [id number] Employee [id number] Workers Comp Carrier I WorkComp Health Claim [id number] Emp loyee [id number] Workers Comp I- FA WorkComp Health Claim [id number] Employee [id number] Workers Comp Carrier I WorkComp Health Claim [id number] Emp loyee [id number] [employer] [id number] Self [id number] [employer]. 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 PLAN [id number] SP [id number] SELF PAY UNAVAILABLE SP UNAVAILA BLE [facility] [id number] FA2 [id number] NINA [id number] SP [id number] 100 [id number] [place] CARE [place] O [id number] S [id number] [facility] O [id number] S [id number] UNHC COMMUNITY PLAN MCDHMO [id number] SP [id number] UNHC COMMUNITY PLAN XIX [id number] 18 [id number] MEDICAID [id number] SP [id number] SELF PAY ONLY [id number] SP [id number] SELF PAY ONLY [id number] SP [id number] [facility] Health Maintenance Organization (HMO) [id number] Self [employer]BS S [id number] S [id number] Problems, Conditions, and Diagnoses No Information Surgeries/Procedures No Information Results ID Date Data Source [id number] 08/31/2020 02:21:00 PM EST [facility] Name Value Range Interpretation Code Description Data Yaa rce(s) Supporting Document(s) SARS-CoV-2 by JOSE Not Detected [facility] This lab was ordered by [facility] [place] [facility] and reported by [employer]. ID Date Data Source [id number] 09/03/2020 07:08:35 PM EST [facility] Name Value Range Interpretation Code Description Data Yaa rce(s) Supporting Document(s) SARS COV2 SOURCE [facility] SARS COV 2 BY PCR [facility] Not Detected INTERPRETIVE INFORMATION: S ARS-CoV-2 (COVID-19) [...] In compliance with this authorization, please visit [email or web address] for more information and to access the [...] collection, transport, storage, and handling. Performed by [facility] [facility], [address] [place] [id number] [email or web address], Marcia Langley MD, Lab. Director ID Date Data Source [id number] 08/20/2020 12:00:00 AM EST [facility] Name Value Range Interpretation Code Description Data Yaa rce(s) Supporting Document(s) SARS coronavirus 2 RNA [facility] This lab was ordered by [employer] and rep orted by [facility]. Procedure Social History No Information
[2021-07-01] MEDS ORDERED: METH-1164 PO (14:06)
[2021-07-01] MEDS ORDERED: NAPR-885 PO (14:06)
== END 2021-07-01 05:08 | disposition left against medical advice (07) ==
LOC: M ED 23:32
DX: Z53.21 Procedure and treatment not carried out due to patient leaving prior to being seen by health care provider (principal)

== ENCOUNTER 2021-07-01 10:02 | Emergency (ER) | payer OTHER ==
[~2021-07-01] VITALS: Ht 170.2 cm; Wt 101.0 kg
--- OUTSIDE RECORDS SUMMARY | 2021-07-01 10:10 | CCD ---
Author Author [facility] Organization [facility] Address Unknown Phone Unavailable Care Team Providers Care Long Wall Mining Machine Tender Name Role Phone Maring, Jr PA Unavailable [...] Unavailable GALLO, G EDWARD RPA Unavailable Unavailable GLALO, G EDWARD RPA Unavailable Unavailable GALLO, G [...] is protected by Article 27-F of the [facility] Public Health law. If you continue you may have access to information: Regarding HIV / AIDS; Provided by facilities licensed or operated by the [facility] Office of Mental Health; or Provided by the [facility] Office for People With Developmental Disabilities. If such information is present, then the following [facility] mandated warning applies: This information [...] law may result in a fine or nursing home sentence or both. A general authorization for the release of medical or other information is NOT sufficient authorization for further disc losure. Family History Family Member Name Family Member Gender Family Member Status Date o f Status Description Data Source(s) Unknown Unknown Problem MEDENT ([facility], [facility]) Encounters Encounter Providers Location Date Indications Data Source(s ) Outpatient Attender: CHRISTINE GALLO RPA 04/30 11:57:15 AM EDT - 04/30/2021 01:10:27 PM EDT [facility] ([facility] ) Outpatient 04/30/2021 11:50:59 AM EDT [facility] ([facility]) Outpatient Attender: Jr ALVARADO 04/25/20 07:39:12 AM EDT - 04/25/2021 08:12:05 AM EDT [facility] ([facility] ) Outpatient Attender: CHRISTINE GALLO RPA 12/29 12:45:08 PM EDT - 12/29/2020 02:49:13 PM EDT [facility] ([facility] ) Immunizations Vaccine Date Status Description Data Source(s) COVID-19 VACCINE Moderna 01/01/2021 12:00:00 AM EDT completed [facility] Vaccine Series Complete: YESThis Data wa s Submitted to [facility] Via [employer]. COVID-19 VACC,MRNA(MODERNA)/PF 12/01/2020 12:00:00 AM EDT completed [facility] COVID-19 VACCINE Moderna 12/01/2020 12:00:00 AM EDT completed [facility] Vaccine Series Complete: NOThis Data was Submitted to [facility] [employer]. INFLUENZA VIRUS VACCINE QUADRIVAL [id number](6 MOS AND UP)/PF 05/07/2020 12:00:00 AM EDT completed [facility] Medications Medication Brand Name Start Date Product [...] Neomycin 3.5 M G/ML / Polymyxin B 88969 UNT/ML Otic Solution 3.5-10,000-1 mg/mL-unit/mL-% NEOMYCIN/POLYMYXIN B/HYDROCORT 04/25/2021 12:00:00 AM EDT solution 10 INSTILL FOUR EZRA PS OTIC (EAR) FOUR TIMES A DAY IN LEFT EAR INSTILL FOUR DROPS OTIC (EAR) FOUR TIMES A DAY IN LEFT EAR SOLD: 04/25/2021 [facility] . UNIT 05/24/2020 12:00:00 AM EDT Injectable 1 DIRECTED DIRECTED SOLD: 05/25/2020 [facility] Insurance Providers Payer name Policy type / Coverage type Policy ID Covered alliance party ID Covered alliance party's relationship to salcedo Policy Salcedo Plan Information [facility] Maintenance [facility] ([facility] [id number] Self [id number] [facility] ([facility] [id number] Self [id number] [facility] [id number] SP [id number] [facility] PLAN [facility] [id number] SP [id number] Workers Comp I- FA WorkComp Health Claim [id number] Employee [id number] Workers Comp Carrier I WorkComp Health Claim [id number] Emp [place] [id number] Workers Comp I- FA WorkComp Health Claim [id number] Employee [id number] Workers Comp Carrier I WorkComp Health Claim [id number] Emp [place] [id number] [employer] [id number] Self [id number] [employer] [id number] Self [id number] BLUE CROSS BEAN PLAN [id number] SP [id number] SELF PAY UNAVAILABLE SP UNAVAILA BLE [facility] [id number] FA2 [id number] NINA [id number] SP [id number] 100 [id number] [place] O [id number] S [id number] [facility] O [id number] S [id number] UNHC COMMUNITY PLAN MCDHMO [id number] SP [id number] UNHC COMMUNITY PLAN XIX [id number] 18 [id number] MEDICAID [id number] SP [id number] SELF PAY ONLY [id number] SP [id number] SELF PAY ONLY [id number] SP [id number] [facility] Health Maintenance Organization (HMO) [id number] Self [employer] S [id number] S [id number] Problems, Conditions, and Diagnoses No Information Surgeries/Procedures No Information Results ID Date Data Source [id number] 08/31/2020 02:21:00 PM EST [facility] Name Value Range Interpretation Code Description Data Yaa rce(s) Supporting Document(s) SARS-CoV-2 by JOSE Not Detected [facility] This lab was ordered by [facility] [place] [facility] and reported by [facility] [employer]. ID Date Data Source [id number] 09/03/2020 07:08:35 PM EST [facility] Name Value Range Interpretation Code Description Data Yaa rce(s) Supporting Document(s) SARS COV2 SOURCE [facility] SARS COV 2 BY PCR [facility] Not Detected INTERPRETIVE INFORMATION: S ARS-CoV-2 [...] In compliance with this authorization, please visit [email or web address] for more information and to access the [...] collection, transport, storage, and handling. Performed by [facility], [address] [place] [id number] [email or web address], Marcia Langley MD, Lab. Director ID Date Data Source [id number] 08/20/2020 12:00:00 AM EST [facility] Name Value Range Interpretation Code Description Data Yaa rce(s) Supporting Document(s) SARS coronavirus 2 RNA [facility] This lab was ordered by [facility] and rep orted by [facility]. Procedure Social History No Information
--- OUTSIDE RECORDS SUMMARY | 2021-07-01 11:42 | CCD ---
Author Author [facility] Organization [facility] Address Unknown Phone Unavailable Care Team Providers Care Corporate Director Of Pharmacy Name Role Phone Maring, Jr PA Unavailable [...] is protected by Article 27-F of the [facility] Public Health law. If you continue you may have access to information: Regarding HIV / AIDS; Provided by facilities licensed or operated by the [facility] Office of Mental Health; or Provided by the [facility] Office for People With Developmental Disabilities. If such information is present, then the following [facility] mandated warning applies: This information has [...] law may result in a fine or care home sentence or both. A general authorization for the release of medical or other information is NOT sufficient authorization for further disc losure. Family History Family Member Name Family Member Gender Family Member Status Date o f Status Description Data Source(s) Unknown Unknown Problem [facility]ENT ([facility]) Encounters Encounter Providers Location Date Indications Data Source(s ) Outpatient Attender: CHRISTINE GALLO RPA 04/30 11:57:15 AM EDT - 04/30/2021 01:10:27 PM EDT [facility] ([facility] ) Outpatient 04/30/2021 11:50:59 AM EDT [facility] ([facility]) Outpatient Attender: Jr ALVARADO 04/25/20 07:39:12 AM EDT - 04/25/2021 08:12:05 AM EDT [facility] ([facility] ) Outpatient Attender: CHRISTINE GALLO RPA 12/29 12:45:08 PM EDT - 12/29/2020 02:49:13 PM EDT [facility] ([facility] ) Immunizations Vaccine Date Status Description Data Source(s) COVID-19 VACCINE Moderna 01/01/2021 12:00:00 AM EDT completed [facility] Vaccine Series Complete: YESThis Data wa s Submitted to [facility] Via [employer]. COVID-19 VACC,MRNA(MODERNA)/PF 12/01/2020 12:00:00 AM EDT completed [facility] COVID-19 VACCINE Moderna 12/01/2020 12:00:00 AM EDT completed [facility] Vaccine Series Complete: NOThis Data was Submitted to [facility] Via [employer]. INFLUENZA VIRUS VACCINE QUADRIVAL [id number](6 MOS AND UP)/PF 05/07/2020 12:00:00 AM EDT [...] Neomycin 3.5 M G/ML / Polymyxin B 15014 UNT/ML Otic Solution 3.5-10,000-1 mg/mL-unit/mL-% NEOMYCIN/POLYMYXIN B/HYDROCORT 04/25/2021 12:00:00 AM EDT solution 10 INSTILL FOUR EZRA PS OTIC (EAR) FOUR TIMES A DAY IN LEFT EAR INSTILL FOUR DROPS OTIC (EAR) FOUR TIMES A DAY IN LEFT EAR SOLD: 04/25/2021 [facility] . UNIT 05/24/2020 12:00:00 AM EDT Injectable 1 DIRECTED DIRECTED SOLD: 05/25/2020 [facility] Insurance Providers Payer name Policy type / Coverage type Policy ID Covered democrat ID Covered democrat's relationship to salcedo Policy Salcedo Plan Information [facility] Maintenance [facility] ([facility]) [id number] Self [id number] [facility] ([facility]) [id number] Self [id number] [facility] [id number] SP [id number] [facility] PLAN [facility] [id number] SP [id number] Workers Comp I- FA WorkComp Health Claim [id number] Employee [id number] Workers Comp Carrier I WorkComp Health Claim [id number] Emp [place] [id number] Workers Comp I- FA WorkComp Health Claim [id number] Employee [id number] Workers Comp Carrier I WorkComp Health Claim [id number] Emp [place] [id number] [employer] [id number] Self [id number] [place] [employer]. [id number] Self [id number] [employer]BS S [id number] S [id number] BLUE CROSS BEAN PLAN [id number] SP [id number] SELF PAY UNAVAILABLE SP UNAVAILA BLE [facility] [id number] FA2 [id number] [employer] WORK[employer] COMP [id number] SP [id number] NINA [id number] SP [id number] [place]ARE [place] O [id number] S [id number] [facility] O [id number] S [id number] UN COMMUNITY PLAN MCDHMO [id number] SP [id number] UN COMMUNITY PLAN XIX [id number] 18 [id number] MEDICAID [id number] SP [id number] SELF PAY ONLY [id number] SP [id number] SELF PAY ONLY [id number] SP [id number] [facility] Health Maintenance Organization (HMO) [id number] Self Problems, Conditions, and Diagnoses No Information Surgeries/Procedures No Information Results ID Date Data Source [id number] 08/31/2020 02:21:00 PM EST [facility] Name Value Range Interpretation Code Description Data Yaa rce(s) Supporting Document(s) SARS-CoV-2 by JOSE Not Detected [facility] This lab was ordered by [facility] [place] [facility] and reported by [facility]. ID Date Data Source [id number] 09/03/2020 07:08:35 PM EST [facility] Name Value Range Interpretation Code Description Data Yaa rce(s) Supporting Document(s) SARS COV2 SOURCE [facility] SARS COV 2 BY PCR Laboratory [facility] Not Detected INTERPRETIVE INFORMATION: S ARS-CoV-2 (COVID-19) [...] In compliance with this authorization, please visit [email or web address] for more information and to access the [...] collection, transport, storage, and handling. Performed by [facility], [address] [place] [id number] [email or web address], Marcia Langley MD, Lab. Director ID Date Data Source [id number] 08/20/2020 12:00:00 AM EST [facility] Name Value Range Interpretation Code Description Data Yaa rce(s) Supporting Document(s) SARS coronavirus [address] [facility] This lab was ordered by [facility] and rep orted by [facility]. Procedure Social History No Information
[2021-07-01] MEDS ORDERED: METH-1164 PO (14:06)
[2021-07-01] MEDS ORDERED: NAPR-885 PO (14:06)
[2021-07-01 14:11] VITALS: BP 132/87
== END 2021-07-01 14:18 | disposition home or self-care (01) ==
LOC: M ED 10:02
DX: M77.11 Lateral epicondylitis, right elbow (principal); Z91.040 Latex allergy status

== ENCOUNTER 2021-12-11 18:02 | Emergency (ER) | payer OTHER ==
[~2021-12-11] VITALS: Ht 170.2 cm; Wt 106.7 kg
[~2021-12-11 18:02] MED LIST changes: +METH-1164 PO; +NAPR-885 PO
[2021-12-11 21:36] VITALS: BP 131/79
[2021-12-11] MEDS ORDERED: PROPARACAINE 0.5% OPHTH SOL 15ML OD ONE (21:45)
[2021-12-11] MEDS ORDERED: FLUORESCEIN OPHTH 1 MG STRIP OD ONE (21:45)
== END 2021-12-11 22:57 | disposition home or self-care (01) ==
LOC: M ED 18:02
DX: H40.053 Ocular hypertension, bilateral (principal); H57.11 Ocular pain, right eye; H11.31 Conjunctival hemorrhage, right eye

== ENCOUNTER → 2022-11-14 | Outpatient (REF) | payer OTHER | LOC: M LAB REF 21:49 | PROVIDERS: ATTEND Physician Assistant | DX: J02.9 Acute pharyngitis, unspecified (principal) ==

== ENCOUNTER → 2022-12-24 | Outpatient (CLI) | payer OTHER ==
[2022-12-24 13:04] LABS: BASO # 0.1 10^3/uL (0.0-0.2); BASO % 0.9 % (0.0-1.0); EOS # 0.1 10^3/uL (0.0-0.5); EOS % 1.3 % (0.0-3.0); HEMATOCRIT 37.9 % (36.0-47.0); HEMOGLOBIN 11.5 g/dl (12.0-15.5); LYMPH # 1.5 10^3/uL (1.5-5.0); LYMPH % 21.3 % (24.0-44.0); MEAN CORPUSCULAR HEMOGLOBIN 22.2 pg (27.0-33.0); MEAN CORPUSCULAR HGB CONC 30.3 g/dl (32.0-36.5); MEAN CORPUSCULAR VOLUME 73.3 fl (80.0-96.0); MONO # 0.5 10^3/uL (0.0-0.8); MONO % 6.7 % (2.0-8.0); NEUTROPHILS # 4.9 10^3/uL (1.5-8.5); NEUTROPHILS % 69.5 % (36.0-66.0); PLATELET COUNT, AUTOMATED 347 10^3/uL (150-450); RED BLOOD COUNT 5.17 10^6/uL (4.00-5.40)
[2022-12-24 13:16] LABS: INR 0.95; PROTHROMBIN TIME 12.9 SECONDS (12.5-14.5)
[2022-12-24 13:17] LABS: PARTIAL THROMBOPLASTIN TIME 28.9 SECONDS (24.8-34.2)
[2022-12-24 13:24] LABS: COLLAGEN EPINEPHRINE 143 SECONDS (74-162); TOTAL IRON BINDING CAPACITY 427 UG/DL (250-425)
[2022-12-24 13:26] LABS: ALBUMIN 3.6 G/DL (3.2-5.2); ALKALINE PHOSPHATASE 72 U/L (46-116); ALT/SGPT 17 U/L (7.0-40); AST/SGOT 18 U/L (<34); BILIRUBIN,TOTAL 0.3 MG/DL (0.3-1.2); BLOOD UREA NITROGEN 13 MG/DL (9-23); CALCIUM LEVEL 9.3 MG/DL (8.5-10.1); CARBON DIOXIDE LEVEL 31 MMOL/L (20-31); CHLORIDE LEVEL 104 MMOL/L (98-107); CHOLESTEROL LEVEL 147 MG/DL (<200); CHOLESTEROL RISK RATIO 2.96 (<5); CREATININE FOR GFR 0.66 MG/DL (0.55-1.30); GLOMERULAR FILTRATION RATE > 60.0 (>60); GLUCOSE, FASTING 94 MG/DL (60-100); HDL CHOLESTEROL 49.5 MG/DL (>40); IRON (FE) 23 UG/DL (50-170); LDL CHOLESTEROL 70.1 MG/DL (<100); NON-HDL-C 97.5 MG/DL; PERCENT SATURATION 5.4 % (13.2-45.0); POTASSIUM SERUM 3.8 MMOL/L (3.5-5.1); SODIUM LEVEL 139 MMOL/L (136-145); TOTAL PROTEIN 7.2 G/DL (5.7-8.2); TRIGLYCERIDES LEVEL 137 MG/DL (<150)
[2022-12-24 13:28] LABS: THYROID STIMULATING HORMONE 1.007 uIU/ML (0.55-4.78)
[2022-12-24 13:29] LABS: FERRITIN 3.7 NG/ML (7.3-270.7)
== END ==
LOC: M LAB 12:25
PROVIDERS: ATTEND Physician Assistant
DX: N92.0 Excessive and frequent menstruation with regular cycle (principal); R58 Hemorrhage, not elsewhere classified

== ENCOUNTER → 2023-01-16 | Outpatient (CLI) | payer OTHER | LOC: M RAD 10:23 | PROVIDERS: ATTEND Physician Assistant | DX: N92.0 Excessive and frequent menstruation with regular cycle (principal) ==

== ENCOUNTER → 2023-03-06 | Outpatient (CLI) | payer MEDICARE, OTHER | LOC: M PLALAB 11:39 | PROVIDERS: ATTEND Nurse Practitioner Family | DX: Z13.89 Encounter for screening for other disorder (principal); Z80.3 Family history of malignant neoplasm of breast ==

== ENCOUNTER → 2023-03-13 | Outpatient (REF) | payer MEDICARE, OTHER ==
[2023-03-13 18:10] LABS: HEMATOCRIT 38.7 % (36.0-47.0); HEMOGLOBIN 11.8 g/dl (12.0-15.5); MEAN CORPUSCULAR HEMOGLOBIN 22.7 pg (27.0-33.0); MEAN CORPUSCULAR HGB CONC 30.5 g/dl (32.0-36.5); MEAN CORPUSCULAR VOLUME 74.6 fl (80.0-96.0); PLATELET COUNT, AUTOMATED 331 10^3/uL (150-450); RED BLOOD COUNT 5.19 10^6/uL (4.00-5.40); WHITE BLOOD COUNT 6.1 10^3/uL (4.0-10.0)
[2023-03-13 18:30] LABS: ALBUMIN 3.6 G/DL (3.2-5.2); ALKALINE PHOSPHATASE 81 U/L (46-116); ALT/SGPT 35 U/L (7.0-40); AST/SGOT 20 U/L (<34); BILIRUBIN,TOTAL 0.5 MG/DL (0.3-1.2); BLOOD UREA NITROGEN 13 MG/DL (9-23); CALCIUM LEVEL 9.4 MG/DL (8.5-10.1); CARBON DIOXIDE LEVEL 28 MMOL/L (20-31); CHLORIDE LEVEL 103 MMOL/L (98-107); CREATININE FOR GFR 0.69 MG/DL (0.55-1.30); GLOMERULAR FILTRATION RATE > 60.0 (>60); GLUCOSE, FASTING 85 MG/DL (60-100); IRON (FE) 28 UG/DL (50-170); PERCENT SATURATION 7.1 % (13.2-45.0); POTASSIUM SERUM 4.4 MMOL/L (3.5-5.1); SODIUM LEVEL 136 MMOL/L (136-145); TOTAL IRON BINDING CAPACITY 397 UG/DL (250-425); TOTAL PROTEIN 7.2 G/DL (5.7-8.2)
[2023-03-13 18:32] LABS: FERRITIN 6.6 NG/ML (7.3-270.7)
== END ==
LOC: M LAB REF 17:48
PROVIDERS: ATTEND Physician Assistant
DX: D50.9 Iron deficiency anemia, unspecified (principal); N92.0 Excessive and frequent menstruation with regular cycle

== ENCOUNTER → 2023-04-09 | Outpatient (REF) | payer MEDICARE, OTHER ==
[2023-04-09 17:35] LABS: BASO # 0.1 10^3/uL (0.0-0.2); BASO % 0.9 % (0.0-1.0); EOS # 0.1 10^3/uL (0.0-0.5); EOS % 1.9 % (0.0-3.0); HEMATOCRIT 38.1 % (36.0-47.0); HEMOGLOBIN 11.7 g/dl (12.0-15.5); LYMPH # 1.3 10^3/uL (1.5-5.0); LYMPH % 21.9 % (24.0-44.0); MEAN CORPUSCULAR HGB CONC 30.7 g/dl (32.0-36.5); MEAN CORPUSCULAR VOLUME 74.9 fl (80.0-96.0); MONO # 0.5 10^3/uL (0.0-0.8); MONO % 8.2 % (2.0-8.0); NEUTROPHILS # 3.8 10^3/uL (1.5-8.5); NEUTROPHILS % 66.6 % (36.0-66.0); PLATELET COUNT, AUTOMATED 314 10^3/uL (150-450); RED BLOOD COUNT 5.09 10^6/uL (4.00-5.40); WHITE BLOOD COUNT 5.8 10^3/uL (4.0-10.0)
[2023-04-09 17:59] LABS: PERCENT SATURATION 6.8 % (13.2-45.0)
== END ==
LOC: M LAB REF 17:10
PROVIDERS: ATTEND Physician Assistant
DX: D50.9 Iron deficiency anemia, unspecified (principal)

== ENCOUNTER 2023-08-12 08:16 | Day surgery (SDC) | payer OTHER ==
[~2023-08-12] VITALS: Ht 170.2 cm; Wt 118.8 kg
[~2023-08-12 08:16] MED LIST changes: +FERR325T81 PO; +ceFAZolin SOD 2 GM in IV 1 EA IV ONE
[2023-08-12] MEDS ORDERED: fentaNYL 100 MCG/2 ML INJECTION As Ordered ONE (08:44)
[2023-08-12] MEDS ORDERED: LIDOCAINE 2% 100MG/5ML SDV (FOR ANES.) As Ordered ONE (08:44)
[2023-08-12] MEDS ORDERED: MIDAZOLAM INJ 2MG/2ML VIAL As Ordered ONE (08:44)
[2023-08-12] MEDS ORDERED: propofoL 200 MG/20 ML VIAL As Ordered ONE (08:44)
[2023-08-12] MEDS ORDERED: ROCURONIUM BROMIDE 50MG/5ML VIAL As Ordered ONE ×2 (08:44→10:54)
[2023-08-12 08:47] LABS: HEMATOCRIT 37.4 % (36.0-47.0); HEMOGLOBIN 11.2 g/dl (12.0-15.5); MEAN CORPUSCULAR HEMOGLOBIN 21.4 pg (27.0-33.0); MEAN CORPUSCULAR HGB CONC 29.9 g/dl (32.0-36.5); MEAN CORPUSCULAR VOLUME 71.5 fl (80.0-96.0); PLATELET COUNT, AUTOMATED 348 10^3/uL (150-450); RED BLOOD COUNT 5.23 10^6/uL (4.00-5.40); WHITE BLOOD COUNT 6.4 10^3/uL (4.0-10.0)
[2023-08-12] MEDS ORDERED: LR 1,000 ML IV SCH ×2 (09:20→11:35)
[2023-08-12] MEDS ORDERED: HYDROmorphone HCL 2MG/ML 1ML VIAL As Ordered ONE (10:36)
[2023-08-12] MEDS ORDERED: ACETAMINOPHEN 1000MG 100ML IV BAG As Ordered ONE (10:56)
[2023-08-12] MEDS ORDERED: METOCLOPRAMIDE INJ 10MG/2ML VIAL As Ordered ONE (10:57)
[2023-08-12] MEDS ORDERED: KETOROLAC 60MG 2ML VIAL As Ordered ONE (10:57)
[2023-08-12] MEDS ORDERED: ONDANSETRON 4MG 2ML VIAL As Ordered ONE (10:57)
[2023-08-12] MEDS ORDERED: fentaNYL 100 MCG/2 ML INJECTION IV PRN (11:35)
[2023-08-12] MEDS ORDERED: HYDROMORPHONE HCL 0.5 MG/ 0.5 ML SYRINGE IV PRN (11:35)
[2023-08-12] MEDS ORDERED: ONDANSETRON 4MG 2ML VIAL IV PRN (11:35)
[2023-08-12] MEDS ORDERED: oxyCODONE 5MG TAB PO PRN (11:35)
[2023-08-12 13:15] VITALS: BP 146/74; TEMP 98; O2SAT 98
== END 2023-08-12 13:27 | disposition home or self-care (01) ==
LOC: M SDC 08:16
PROVIDERS: ATTEND Obstetrics & Gynecology
DX: N80.03 Adenomyosis of the uterus (principal); N93.9 Abnormal uterine and vaginal bleeding, unspecified; D64.9 Anemia, unspecified; F41.9 Anxiety disorder, unspecified; F32.A Depression, unspecified; Z79.899 Other long term (current) drug therapy; Z91.040 Latex allergy status
CPT/HCPCS: 36415; 58571; 85027; 86850; 86900; 86901; 88307; J0131; J0665; J1100; J1170; J1885; J2250; J2405; J2765; J3010; S2900

== ENCOUNTER → 2024-01-30 | Outpatient (REF) | payer OTHER, MEDICARE ==
[~2024-01-30] MED LIST changes: -ceFAZolin SOD 2 GM in IV 1 EA IV ONE
[2024-01-30 18:24] LABS: BASO # 0.1 10^3/uL (0.0-0.2); BASO % 0.8 % (0.0-1.0); EOS # 0.2 10^3/uL (0.0-0.5); EOS % 2.7 % (0.0-3.0); HEMATOCRIT 38.6 % (36.0-47.0); HEMOGLOBIN 12.2 g/dl (12.0-15.5); LYMPH # 1.4 10^3/uL (1.5-5.0); LYMPH % 23.7 % (24.0-44.0); MEAN CORPUSCULAR HEMOGLOBIN 23.9 pg (27.0-33.0); MEAN CORPUSCULAR HGB CONC 31.6 g/dl (32.0-36.5); MEAN CORPUSCULAR VOLUME 75.5 fl (80.0-96.0); MONO # 0.6 10^3/uL (0.0-0.8); MONO % 9.2 % (2.0-8.0); NEUTROPHILS # 3.8 10^3/uL (1.5-8.5); NEUTROPHILS % 63.1 % (36.0-66.0); PLATELET COUNT, AUTOMATED 309 10^3/uL (150-450); RED BLOOD COUNT 5.11 10^6/uL (4.00-5.40)
[2024-01-30 19:02] LABS: VITAMIN B12 LEVEL 442 PG/ML (211-911)
[2024-01-30 19:03] LABS: FOLATE 23.8 NG/ML (>5.4)
[2024-01-30 19:04] LABS: THYROID STIMULATING HORMONE 2.262 uIU/ML (0.55-4.78)
[2024-01-30 19:06] LABS: FREE T4 1.02 NG/DL (0.89-1.76); IRON (FE) 59 UG/DL (50-170); PERCENT SATURATION 16.2 % (13.2-45.0); TOTAL IRON BINDING CAPACITY 364 UG/DL (250-425)
[2024-01-30 19:07] LABS: ALBUMIN 3.3 G/DL (3.2-5.2); ALKALINE PHOSPHATASE 74 U/L (46-116); ALT/SGPT 41 U/L (7.0-40); AST/SGOT 24 U/L (<34); BILIRUBIN,TOTAL 0.4 MG/DL (0.3-1.2); BLOOD UREA NITROGEN 13 MG/DL (9-23); CALCIUM LEVEL 8.9 MG/DL (8.5-10.1); CARBON DIOXIDE LEVEL 29 MMOL/L (20-31); CHLORIDE LEVEL 107 MMOL/L (98-107); CHOLESTEROL LEVEL 170 MG/DL (<200); CREATININE FOR GFR 0.75 MG/DL (0.55-1.30); GLOMERULAR FILTRATION RATE > 60.0 (>60); GLUCOSE, FASTING 94 MG/DL (60-100); HDL CHOLESTEROL 48.5 MG/DL (>40); LDL CHOLESTEROL 98.1 MG/DL (<100); NON-HDL-C 121.5 MG/DL; SODIUM LEVEL 140 MMOL/L (136-145); TOTAL PROTEIN 6.7 G/DL (5.7-8.2); TRIGLYCERIDES LEVEL 117 MG/DL (<150)
== END ==
LOC: M LAB REF 16:25
PROVIDERS: ATTEND Physician Assistant
DX: D50.9 Iron deficiency anemia, unspecified (principal); R44.1 Visual hallucinations; E66.9 Obesity, unspecified; R20.2 Paresthesia of skin

== ENCOUNTER 2024-02-13 09:48 | Emergency (ER) | payer MEDICARE, OTHER ==
[~2024-02-13] VITALS: Ht 170.2 cm; Wt 125.2 kg
[2024-02-13 12:40] LABS: BASO # 0.1 10^3/uL (0.0-0.2); BASO % 0.8 % (0.0-1.0); EOS # 0.1 10^3/uL (0.0-0.5); EOS % 1.8 % (0.0-3.0); HEMATOCRIT 44.1 % (36.0-47.0); HEMOGLOBIN 13.9 g/dl (12.0-15.5); LYMPH # 1.4 10^3/uL (1.5-5.0); LYMPH % 19.9 % (24.0-44.0); MEAN CORPUSCULAR HEMOGLOBIN 24.3 pg (27.0-33.0); MEAN CORPUSCULAR HGB CONC 31.5 g/dl (32.0-36.5); MEAN CORPUSCULAR VOLUME 77.1 fl (80.0-96.0); MONO # 0.6 10^3/uL (0.0-0.8); MONO % 8.6 % (2.0-8.0); NEUTROPHILS % 68.3 % (36.0-66.0); PLATELET COUNT, AUTOMATED 326 10^3/uL (150-450); RED BLOOD COUNT 5.72 10^6/uL (4.00-5.40); WHITE BLOOD COUNT 7.2 10^3/uL (4.0-10.0)
[2024-02-13] MEDS ORDERED: ISOVUE-370 76% 100ML VIAL As Ordered ONE (12:44)
[2024-02-13 13:05] LABS: INR 0.96; PARTIAL THROMBOPLASTIN TIME 28.1 SECONDS (24.8-34.2); PROTHROMBIN TIME 12.5 SECONDS (12.5-14.5)
[2024-02-13] MEDS ORDERED: HOME MED LIST COMPLETE! XX SCH (14:05)
[2024-02-13 14:26] VITALS: BP 142/78; TEMP 97.8; O2SAT 100
== END 2024-02-13 14:28 | disposition home or self-care (01) ==
LOC: M ED 09:48
DX: I70.218 Atherosclerosis of native arteries of extremities with intermittent claudication, other extremity (principal); F41.9 Anxiety disorder, unspecified; Z91.040 Latex allergy status
CPT/HCPCS: 36415; 73206; 80047; 85025; 85610; 85730; 93971; 99284; Q9967

== ENCOUNTER → 2024-06-22 | Outpatient (REF) | payer OTHER | LOC: M LAB REF 20:29 | PROVIDERS: ATTEND Physician Assistant | DX: J02.9 Acute pharyngitis, unspecified (principal) ==

== ENCOUNTER → 2024-12-01 | Outpatient (CLI) | payer OTHER ==
[2024-12-01 13:13] LABS: HEMOGLOBIN A1c 4.6 % (4.0-6.0)
[2024-12-01 13:25] LABS: BLOOD UREA NITROGEN 13 MG/DL (9-23); CALCIUM LEVEL 9.7 MG/DL (8.5-10.1); CARBON DIOXIDE LEVEL 29 MMOL/L (20-31); CHLORIDE LEVEL 107 MMOL/L (98-107); CREATININE FOR GFR 0.72 MG/DL (0.55-1.30); GLOMERULAR FILTRATION RATE > 60.0 (>60); GLUCOSE, FASTING 79 MG/DL (60-100); POTASSIUM SERUM 4.6 MMOL/L (3.5-5.1); SODIUM LEVEL 141 MMOL/L (136-145)
== END ==
LOC: M WUC 11:02
PROVIDERS: ATTEND Physician Assistant
DX: E28.2 Polycystic ovarian syndrome (principal)